=== PATIENT | female | born 1985 | race Caucasian/White ===

== ENCOUNTER 2024-03-05 06:25 | Day surgery (SDC) | payer BC ==
[2024-03-05 06:43] LABS: HCG URINE TEST NEGATIVE (NEGATIVE)
[2024-03-05] MEDS ORDERED: Lactated Ringers 1,000 ML IV ONE ×2 (06:44→06:57)
[2024-03-05] MEDS ORDERED: CEFAZOLIN 2 GM-D5W BAG** 2 GM/50 ML ML IV ONE (06:57)
[2024-03-05 07:07] VITALS: O2SAT 100
[2024-03-05] MEDS: CEFAZOLIN 2 GM-D5W BAG** 2 GM/50 ML ML IV SCH (07:12)
[2024-03-05] MEDS: Lactated Ringers 1,000 ML IV SCH (07:13)
[2024-03-05] MEDS ORDERED: Decadron 4 MG INJ ONE (08:19)
[2024-03-05] MEDS ORDERED: DIPRIVAN 200 MG/20 ML IV ONE (08:19)
[2024-03-05] MEDS ORDERED: Zofran 4 MG/2 ML VIAL ONE ×2 (08:19→09:31)
[2024-03-05] MEDS ORDERED: SUBLIMAZE 100 MCG/2 ML ONE ×2 (08:19→09:37)
[2024-03-05] MEDS ORDERED: Xylocaine-Mpf 2% 5 Ml Vial ONE (08:19)
[2024-03-05] MEDS ORDERED: Versed 2 MG/2 ML Injection ONE (08:19)
--- NOTE | 2024-03-05 09:24 | PCM.DCORD ---
- Discharge Disposition: Home, Self-Care Condition: Stable Prescriptions: New Oxycodone HCl/Acetaminophen [Percocet 5-325 mg Tablet] 1 tab PO Q6H PRN PRN #12 tablet MDD 4 PRN Reason: Pain Continue Ibuprofen 200 mg [Motrin 200 mg] 800 mg PO TID PRN ALPRAZolam [Alprazolam] 1 tab PO BID PRN PRN PRN Reason: Anxiety Follow up with: HARSHA HARGROVE PA [Primary Care Provider] -
[2024-03-05] MEDS ORDERED: Hydromorphone 1 mg/ml Injection ONE (10:07)
[2024-03-05 10:53] VITALS: RESP 18
[2024-03-05 11:11] VITALS: BP 133/92; PULSE 75; TEMP 97.6
--- NOTE | 2024-03-06 11:03 | OP ---
SURGERY DATE/TIME: 03/06/2024 0842 PREOPERATIVE DIAGNOSIS: Menorrhagia with bicornate uterus, failed medical management. POSTOPERATIVE DIAGNOSIS: Menorrhagia with bicornate uterus, failed medical management. PROCEDURE: Hysteroscopy D&C with NovaSure ablation. SURGEON: Andrey Bullock D.O. LATEXER: Tomeka Streeter and Ave Hickman, surgical techs. ANESTHESIA: General. QUANTITATIVE BLOOD LOSS: Minimal. COMPLICATIONS: None. INDICATIONS: The risks, benefits, indications and alternatives of the procedure were reviewed with the patient prior to procedure. The patient understood the risk of infection, bleeding, bowel injury, bladder injury, uterine perforation, pelvic infection, thromboembolic disorder associated with this surgery and desires to have this surgery as a possible means to alleviate her current medical condition. DESCRIPTION OF PROCEDURE AND FINDINGS: At this point, the patient is taken to the operating room, given general sedation, placed in a dorsal lithotomy position, prepped and draped in the usual sterile fashion. A weighted speculum is then placed into the patient's vagina and the anterior lip of the cervix is grasped with a single tooth tenaculum. Endocervical dilators were advanced through the endocervical canal as a means to dilate the cervix and the uterus was sounded to approximately 10 cm. From this point, a 5 mm hysteroscope is then placed in through the endocervical region towards the fundal region of the uterus where visualization appeared to be within normal limits with no gross abnormalities that were noted. From this point, the hysteroscope was removed and a curette was then placed into the fundus of the uterus and curettage was performed in all quadrants of the uterus retrieving a moderate amount of tissue. From this point, hemostasis was obtained. At this point, the NovaSure instrument was then taken through the endocervical region towards the fundal region with a measurement of 6.5 cm in length retracted approximately 1 cm with a width of 2.6 cm and the instrument was then engaged where it was turned on for an ablative time of 1 minute and 9 seconds. After complete ablation, the instrument was disengaged and removed from the uterine cavity without complication. From this point, all instruments were removed from the patient's vaginal region. The patient was then taken out of the dorsal lithotomy position, was taken out of anesthesia and was then taken to the recovery room in stable condition. All instruments and laps were accounted for x2.
== END 2024-03-05 11:17 | disposition home or self-care (01) ==
LOC: SDC 06:25
PROVIDERS: ATTEND Obstetrics & Gynecology
DX: N92.0 Excessive and frequent menstruation with regular cycle (principal); Q51.3 Bicornate uterus
CPT/HCPCS: 81025; 82947; J0690; J1100; J1170; J2250; J2405; J2704; J3010

== ENCOUNTER 2024-08-06 06:59 | Observation (INO) | payer BC ==
[2024-08-06 07:08] LABS: HCG URINE TEST NEGATIVE (NEGATIVE)
[2024-08-06] MEDS ORDERED: Pepcid 20 MG VIAL IV ONE (07:12)
[2024-08-06] MEDS: Lactated Ringers 1,000 ML IV SCH ×2 (07:14→17:08)
[2024-08-06] MEDS: CEFAZOLIN 2 GM/100 ML NaCl 2 GM/100 ML IVPB IV SCH ×2 (07:14→13:49)
[2024-08-06] MEDS: TYLENOL EXTRA STRENGTH 500 MG PO ONE (07:16)
[2024-08-06] MEDS: celeBREX 100 MG PO ONE (07:16)
[2024-08-06] MEDS: Reglan 10 MG/2 ML IV ONE (07:16)
[2024-08-06] MEDS: Transderm Scop 1.5MG Patch TOP PRN (07:16)
[2024-08-06] MEDS: Pepcid 20 MG VIAL IV ONE (07:16)
[2024-08-06] MEDS: Decadron 4 MG PO ONE (07:16)
[2024-08-06] MEDS: NEURONTIN PO ONE (07:17)
[2024-08-06 07:38] LABS: Hematocrit 40.4 % (34.1-44.9); Hemoglobin 13.1 g/dL (11.2-15.7); Mean Cell Volume 84.5 fL (79.4-94.8); Mean Corpuscular Hemoglobin 27.4 pg (25.6-32.2); Mean Corpuscular Hgb Concent. 32.4 g/dL (32.2-35.5); Mean Platelet Volume 10.3 fL (9.4-12.3); Platelet Count 217 x10^3/uL (182-369); Red Blood Count 4.78 x10^6/uL (3.93-5.22); Red Cell Distribution Width 16.5 % (11.7-14.4); White Blood Count 3.2 x10^3/uL (3.98-10.04)
[2024-08-06] MEDS: Pepcid 20 MG PO ONE (07:41)
[2024-08-06 07:51] LABS: ALBUMIN 4.1 g/dL (3.5-5.0); ANION GAP 12.6 MEQ/L (5-15); BILIRUBIN,TOTAL 0.4 mg/dL (0.2-1.3); Calcium 9.1 mg/dL (8.4-10.2); Creatinine 1 0.82 mg/dL (0.52-1.04); EST GLOMERULAR FILTRATION RATE 94.4 ML/MIN; Potassium 4.2 mmol/L (3.5-5.1); Total Protein 6.6 g/dL (6.3-8.2)
[2024-08-06 08:39] LABS: ABO TYPING B; Antibody Screen NEGATIVE (NEGATIVE); RH TYPING NEGATIVE
[2024-08-06] MEDS ORDERED: Decadron 4 MG INJ ONE (08:44)
[2024-08-06] MEDS ORDERED: DIPRIVAN 200 MG/20 ML IV ONE (08:44)
[2024-08-06] MEDS ORDERED: ROCURONIUM BROMIDE IV ONE ×2 (08:44→09:49)
[2024-08-06] MEDS ORDERED: Zofran 4 MG/2 ML VIAL ONE ×2 (08:44→11:14)
[2024-08-06] MEDS ORDERED: Sodium Chloride 0.9% 1000 ML 1,000 ML ONE (08:46)
[2024-08-06] MEDS ORDERED: SUBLIMAZE 100 MCG/2 ML ONE ×2 (09:08→10:44)
[2024-08-06] MEDS ORDERED: Sensorcaine 0.25% 10 ML ONE (09:19)
[2024-08-06] MEDS ORDERED: BRIDION 200MG/2ML IV ONE (10:00)
[2024-08-06] MEDS ORDERED: TORAdol 30 mg Injection ONE (10:10)
[2024-08-06 10:46] LABS: Appearance Clear (Clear); Bacteria None Seen /HPF (None Seen); Bilirubin Negative (Negative); Blood Negative (Negative); Epithelial Cells None Seen /HPF (None Seen); Glucose, Urine Negative (Negative); Hyaline Casts NONE SEEN /LPF (0-2); Ketones Negative (Negative); Leukocyte Esterase Negative (Negative); Nitrite Negative (Negative); Ph 7.5 (4.6-8.0); Protein,Urine Dip Negative (Negative); RBC 0-2 /HPF (0-5); Specific Gravity <=1.005 (1.005-1.030); Urobilinogen 0.2 mg/dL (0.2); WBC 0-2 /HPF (0-5)
[2024-08-06] MEDS ORDERED: Hydromorphone 1 mg/ml Injection ONE (11:15)
[2024-08-06] MEDS ORDERED: MORPHINE SULFATE 2 MG INJ IV PRN (12:13)
[2024-08-06] MEDS ORDERED: Zofran 4 MG/2 ML VIAL IV PRN (12:22)
[2024-08-06] MEDS ORDERED: xanAX 0.5 MG PO PRN (12:33)
[2024-08-06] MEDS ORDERED: NON-FORMULARY ITEM (Ubrogepant [Ubrelvy] 100 MG Tablet) PO PRN (12:33)
[2024-08-06] MEDS ORDERED: MOTRIN 400 MG PO PRN (12:35)
[2024-08-06] MEDS ORDERED: MEDICATION INTERVENTION MC SCH (12:45)
[2024-08-06] MEDS: MORPHINE SULFATE 4 MG INJ IV PRN ×2 (13:24→17:26)
[2024-08-06] MEDS: Reglan 10 MG/2 ML IV SCH (13:48)
[2024-08-06] MEDS: Mylicon 80MG PO SCH (13:49)
[2024-08-06] MEDS: Docusate Sodium 100 MG PO SCH (13:49)
[2024-08-06] MEDS: TORAdol 30 mg Injection IV PRN (15:09)
[2024-08-06 18:08] LABS: Hematocrit 39.3 % (34.1-44.9); Hemoglobin 12.9 g/dL (11.2-15.7); Mean Cell Volume 83.4 fL (79.4-94.8); Mean Corpuscular Hemoglobin 27.4 pg (25.6-32.2); Mean Corpuscular Hgb Concent. 32.8 g/dL (32.2-35.5); Mean Platelet Volume 10.5 fL (9.4-12.3); Platelet Count 235 x10^3/uL (182-369); Red Blood Count 4.71 x10^6/uL (3.93-5.22); Red Cell Distribution Width 15.9 % (11.7-14.4); White Blood Count 8.8 x10^3/uL (3.98-10.04)
[2024-08-07 04:44] LABS: Hematocrit 34.7 % (34.1-44.9); Hemoglobin 11.2 g/dL (11.2-15.7); Mean Cell Volume 84.2 fL (79.4-94.8); Mean Corpuscular Hemoglobin 27.2 pg (25.6-32.2); Mean Corpuscular Hgb Concent. 32.3 g/dL (32.2-35.5); Mean Platelet Volume 10.4 fL (9.4-12.3); Platelet Count 219 x10^3/uL (182-369); Red Blood Count 4.12 x10^6/uL (3.93-5.22); Red Cell Distribution Width 16.7 % (11.7-14.4); White Blood Count 9.6 x10^3/uL (3.98-10.04)
[2024-08-07 05:08] LABS: ALBUMIN 3.2 g/dL (3.5-5.0); ANION GAP 10.7 MEQ/L (5-15); BILIRUBIN,TOTAL 0.2 mg/dL (0.2-1.3); Calcium 8.6 mg/dL (8.4-10.2); Creatinine 1 0.73 mg/dL (0.52-1.04); EST GLOMERULAR FILTRATION RATE 108.6 ML/MIN; Potassium 4.3 mmol/L (3.5-5.1); Total Protein 5.5 g/dL (6.3-8.2)
[2024-08-07 07:31] VITALS: RESP 16
--- NOTE | 2024-08-07 07:53 | PCM.NOTE ---
Date and Time: 08/07/24 0749 Subjective Assessment: pod 1 sp lash pt resting in bed and doing well able to ambulate and tolerate diet. vss afebrile abd; soft incision c/d/intact ext; no clubbing cyanosis or edema hgb; 11 a/p sp lash b/l salpingectomy dc home today should fu in office in 2 wks Objective Exam Wound Assessment: Skin/Wound Assessment Wound/Incision Assessment Start: 08/06/24 11:57 Text: Status: Active Freq: Q4H Protocol: Document 08/07/24 07:40 [facility] (Rec: 08/07/24 07:40 [facility] [id number]) Wound/Incision Assessment Abdomen Wound Assessment Shift Assessment Wound Type Incision Wound Stage Non Pressure Wound Drainage Amount None General Appearance Well Approximated,Open to air Comment 4 incisions POD #1 lap hysterectomy - dermabond - open to air Wound Photo Photo Taken No Objective Data Vital Signs: Vital Signs - 24 hr Temp Pulse Resp BP Pulse Ox 08/07/24 07:35 16 08/07/24 07:31 97.0 F 69 16 113/66 99 08/07/24 05:52 103/54 08/07/24 04:00 98.4 F 72 17 94/55 98 08/07/24 00:00 98.6 F 91 H 16 101/53 96 08/06/24 19:45 16 08/06/24 19:28 98.7 F 80 17 108/58 97 08/06/24 16:00 97.8 F 82 16 106/62 98 08/06/24 15:39 18 08/06/24 15:15 98.4 F 71 18 112/61 98 08/06/24 14:15 98.0 F 96 H 111/55 98 08/06/24 13:15 98.4 F 93 H 16 116/71 100 08/06/24 12:45 98.4 F 85 16 125/71 98 08/06/24 12:15 97.1 F 67 16 122/72 99 08/06/24 12:00 97.2 F 72 18 124/69 100 08/06/24 11:59 97.1 F 71 16 131/70 100 Pain Assessment - Last Documented Pain Intensity 0 Pain Scale Used 0-10 Pain Scale Intake and Output: Intake & Output 11/10/08/05/24 08/06/24 08/07/24 11:59 11:59 11:59 11:59 Intake Total 20 2665 Output Total 1650 Balance 20 1015 Weight 90 kg Lab Results: Lab Results-Last 24 Hours 08/06/24 08/06/24 08/06/24 Range/Units 07:30 07:30 09:03 WBC (3.98-10.04) x10^3/uL RBC (3.93-5.22) x10^6/uL Hgb (11.2-15.7) g/dL Hct (34.1-44.9) % MCV (79.4-94.8) fL MCH (25.6-32.2) pg MCHC (32.2-35.5) g/dL RDW (11.7-14.4) % Plt Count (182-369) x10^3/uL MPV (9.4-12.3) fL Sodium 140 (135-145) mmol/L Potassium 4.2 (3.5-5.1) mmol/L Chloride 106 (98-107) mmol/L Carbon Dioxide 25 (22-30) mmol/L Anion Gap 12.6 (5-15) MEQ/L BUN 10 (7-17) mg/dL Creatinine 0.82 (0.52-1.04) mg/dL Estimated GFR 94.4 ML/MIN Glucose 97 (74-106) mg/dL Calcium 9.1 (8.4-10.2) mg/dL Total Bilirubin 0.40 (0.2-1.3) mg/dL AST 24 (14-36) U/L ALT 19 (0-35) U/L Alkaline Phosphatase 49 (38-126) U/L Serum Total Protein 6.6 (6.3-8.2) g/dL Albumin 4.1 (3.5-5.0) g/dL Urine Color Yellow (Yellow) Urine Appearance Clear (Clear) Urine pH 7.5 (4.6-8.0) Ur Specific [place] <=1.005 (1.005-1.030) Urine Protein Negative (Negative) Urine Glucose (UA) Negative (Negative) mg/dL Urine Ketones Negative (Negative) Urine Blood Negative (Negative) Urine Nitrite Negative (Negative) Urine Bilirubin Negative (Negative) Urine Urobilinogen 0.2 (0.2) mg/dL Ur Leukocyte Esterase Negative (Negative) U Hyaline Cast (Auto) NONE SEEN (0-2) /LPF Urine Microscopic RBC 0-2 (0-5) /HPF Urine Microscopic WBC 0-2 (0-5) /HPF Ur Epithelial Cells None Seen (None Seen) /HPF Urine Bacteria None Seen (None Seen) /HPF ABO Group B Rh Factor NEGATIVE Antibody Screen NEGATIVE (NEGATIVE) 08/06/24 08/07/24 08/07/24 Range/Units 18:04 04:40 04:40 WBC 8.8 9.6 (3.98-10.04) x10^3/uL RBC 4.71 4.12 (3.93-5.22) x10^6/uL Hgb 12.9 11.2 (11.2-15.7) g/dL Hct 39.3 34.7 (34.1-44.9) % MCV 83.4 84.2 (79.4-94.8) fL MCH 27.4 27.2 (25.6-32.2) pg MCHC 32.8 32.3 (32.2-35.5) g/dL RDW 15.9 H 16.7 H (11.7-14.4) % Plt Count 235 219 (182-369) x10^3/uL MPV 10.5 10.4 (9.4-12.3) fL Sodium 134 L (135-145) mmol/L Potassium 4.3 (3.5-5.1) mmol/L Chloride 105 (98-107) mmol/L Carbon Dioxide 23 (22-30) mmol/L Anion Gap 10.7 (5-15) MEQ/L BUN 11 (7-17) mg/dL Creatinine 0.73 (0.52-1.04) mg/dL Estimated GFR 108.6 ML/MIN Glucose 109 H (74-106) mg/dL Calcium 8.6 (8.4-10.2) mg/dL Total Bilirubin 0.20 (0.2-1.3) mg/dL AST 23 (14-36) U/L ALT 22 (0-35) U/L Alkaline Phosphatase 44 (38-126) U/L Serum Total Protein 5.5 L (6.3-8.2) g/dL Albumin 3.2 L (3.5-5.0) g/dL Urine Color (Yellow) Urine Appearance (Clear) Urine pH (4.6-8.0) Ur Specific [place] (1.005-1.030) Urine Protein (Negative) Urine Glucose (UA) (Negative) mg/dL Urine Ketones (Negative) Urine Blood (Negative) Urine Nitrite (Negative) Urine Bilirubin (Negative) Urine Urobilinogen (0.2) mg/dL Ur Leukocyte Esterase (Negative) U Hyaline Cast (Auto) (0-2) /LPF Urine Microscopic RBC (0-5) /HPF Urine Microscopic WBC (0-5) /HPF Ur Epithelial Cells (None Seen) /HPF Urine Bacteria (None Seen) /HPF ABO Group Rh Factor Antibody Screen (NEGATIVE) Assessment/Plan (1) Status post laparoscopic supracervical hysterectomy Current Visit: Yes Status: Acute Code(s): Z90.711 - ACQUIRED ABSENCE OF UTERUS WITH REMAINING CERVICAL STUMP (2) Status post bilateral salpingectomy Current Visit: Yes Status: Acute Code(s): Z90.79 - ACQUIRED ABSENCE OF OTHER GENITAL ORGAN(S) (3) Enlarged uterus Current Visit: Yes Status: Acute Code(s): N85.2 - HYPERTROPHY OF UTERUS
--- NOTE | 2024-08-07 07:57 | PCM.DS ---
Discharge Summary Date of Admission: 08/06/24 06:59 Admitting Physician: DAVID JAY DO Primary Care Provider: HARSHA HARGROVE Allergies Allergies No Known Drug Allergies Allergy (Verified 07/04/24 09:01) Hospital Summary - Hospital Course Hospital Course: pt admitted on aug 06 for undergoing laparoscopic supracervical hysterectomy b/l salpingectomy for menorrhagia for failed ablation, failed medical management and underwent procedure without complication. during postop period did well was able to ambulate and tolerate diet where hgb was stable at 11 pod 1 and incision was clean dry and intact. at this time pt stable for discharge and was advised to fu in office in 2 wks for postop evaluation. all questions answered to her satisfaction and was advised to call me for any issues that may arise. rx for percocet being sent to pharmacy 20 tabs. - Vitals & Intake/Output Vital Signs: Vital Signs Temperature 97.0 F 08/07/24 07:31 Pulse Rate 69 08/07/24 07:31 Respiratory Rate 16 08/07/24 07:35 Blood Pressure 113/66 08/07/24 07:31 O2 Sat by Pulse Oximetry 99 08/07/24 07:31 Intake & Output: Intake & Output 08/04/24 08/05/24 08/06/24 08/07/24 11:59 11:59 11:59 11:59 Intake Total 20 2665 Output Total 1650 Balance 20 1015 Weight 90 kg - Lab Result Diagrams: 08/07/24 04:40 08/07/24 04:40 Lab Results-Last 24 Hrs: Lab Results-Last 24 Hours 08/06/24 08/06/24 08/06/24 Range/Units 07:30 07:30 09:03 WBC (3.98-10.04) x10^3/uL RBC (3.93-5.22) x10^6/uL Hgb (11.2-15.7) g/dL Hct (34.1-44.9) % MCV (79.4-94.8) fL MCH (25.6-32.2) pg MCHC (32.2-35.5) g/dL RDW (11.7-14.4) % Plt Count (182-369) x10^3/uL MPV (9.4-12.3) fL Sodium 140 (135-145) mmol/L Potassium 4.2 (3.5-5.1) mmol/L Chloride 106 (98-107) mmol/L Carbon Dioxide 25 (22-30) mmol/L Anion Gap 12.6 (5-15) MEQ/L BUN 10 (7-17) mg/dL Creatinine 0.82 (0.52-1.04) mg/dL Estimated GFR 94.4 ML/MIN Glucose 97 (74-106) mg/dL Calcium 9.1 (8.4-10.2) mg/dL Total Bilirubin 0.40 (0.2-1.3) mg/dL AST 24 (14-36) U/L ALT 19 (0-35) U/L Alkaline Phosphatase 49 (38-126) U/L Serum Total Protein 6.6 (6.3-8.2) g/dL Albumin 4.1 (3.5-5.0) g/dL Urine Color Yellow (Yellow) Urine Appearance Clear (Clear) Urine pH 7.5 (4.6-8.0) Ur Specific [place] <=1.005 (1.005-1.030) Urine Protein Negative (Negative) Urine Glucose (UA) Negative (Negative) mg/dL Urine Ketones Negative (Negative) Urine Blood Negative (Negative) Urine Nitrite Negative (Negative) Urine Bilirubin Negative (Negative) Urine Urobilinogen 0.2 (0.2) mg/dL Ur Leukocyte Esterase Negative (Negative) U Hyaline Cast (Auto) NONE SEEN (0-2) /LPF Urine Microscopic RBC 0-2 (0-5) /HPF Urine Microscopic WBC 0-2 (0-5) /HPF Ur Epithelial Cells None Seen (None Seen) /HPF Urine Bacteria None Seen (None Seen) /HPF ABO Group B Rh Factor NEGATIVE Antibody Screen NEGATIVE (NEGATIVE) 08/06/24 08/07/24 08/07/24 Range/Units 18:04 04:40 04:40 WBC 8.8 9.6 (3.98-10.04) x10^3/uL RBC 4.71 4.12 (3.93-5.22) x10^6/uL Hgb 12.9 11.2 (11.2-15.7) g/dL Hct 39.3 34.7 (34.1-44.9) % MCV 83.4 84.2 (79.4-94.8) fL MCH 27.4 27.2 (25.6-32.2) pg MCHC 32.8 32.3 (32.2-35.5) g/dL RDW 15.9 H 16.7 H (11.7-14.4) % Plt Count 235 219 (182-369) x10^3/uL MPV 10.5 10.4 (9.4-12.3) fL Sodium 134 L (135-145) mmol/L Potassium 4.3 (3.5-5.1) mmol/L Chloride 105 (98-107) mmol/L Carbon Dioxide 23 (22-30) mmol/L Anion Gap 10.7 (5-15) MEQ/L BUN 11 (7-17) mg/dL Creatinine 0.73 (0.52-1.04) mg/dL Estimated GFR 108.6 ML/MIN Glucose 109 H (74-106) mg/dL Calcium 8.6 (8.4-10.2) mg/dL Total Bilirubin 0.20 (0.2-1.3) mg/dL AST 23 (14-36) U/L ALT 22 (0-35) U/L Alkaline Phosphatase 44 (38-126) U/L Serum Total Protein 5.5 L (6.3-8.2) g/dL Albumin 3.2 L (3.5-5.0) g/dL Urine Color (Yellow) Urine Appearance (Clear) Urine pH (4.6-8.0) Ur Specific [place] (1.005-1.030) Urine Protein (Negative) Urine Glucose (UA) (Negative) mg/dL Urine Ketones (Negative) Urine Blood (Negative) Urine Nitrite (Negative) Urine Bilirubin (Negative) Urine Urobilinogen (0.2) mg/dL Ur Leukocyte Esterase (Negative) U Hyaline Cast (Auto) (0-2) /LPF Urine Microscopic RBC (0-5) /HPF Urine Microscopic WBC (0-5) /HPF Ur Epithelial Cells (None Seen) /HPF Urine Bacteria (None Seen) /HPF ABO Group Rh Factor Antibody Screen (NEGATIVE) - Procedures and Test Procedures and Tests throughout Hospitalization: Therapy Orders & Screens 08/06/24 16:39 Incentive Spirometry UD Comment: Diagnosis: Hysterectomy Discharge Exam Wound Assessment: Skin/Wound Assessment Wound/Incision Assessment Start: 08/06/24 11:57 Text: Status: Active Freq: Q4H Protocol: Document 08/07/24 07:40 [facility] (Rec: 08/07/24 07:40 [facility] [id number]) Wound/Incision Assessment Abdomen Wound Assessment Shift Assessment Wound Type Incision Wound Stage Non Pressure Wound Drainage Amount None General Appearance Well Approximated,Open to air Comment 4 incisions POD #1 lap hysterectomy - dermabond - open to air Wound Photo Photo Taken No Final Diagnosis/Problem List - Final Discharge Diagnosis/Problem (1) Status post laparoscopic supracervical hysterectomy Current Visit: Yes Status: Acute Code(s): Z90.711 - ACQUIRED ABSENCE OF UTERUS WITH REMAINING CERVICAL STUMP (2) Status post bilateral salpingectomy Current Visit: Yes Status: Acute Code(s): Z90.79 - ACQUIRED ABSENCE OF OTHER GENITAL ORGAN(S) (3) Enlarged uterus Current Visit: Yes Status: Acute Code(s): N85.2 - HYPERTROPHY OF UTERUS - Discharge Disposition: Home, Self-Care Condition: Stable Prescriptions: No Action Ibuprofen 200 mg [Motrin 200 mg] 800 mg PO TID PRN ALPRAZolam [Alprazolam] 1 tab PO BID PRN PRN PRN Reason: Anxiety Ubrogepant [Ubrelvy] 100 mg PO DAILY PRN PRN PRN Reason: migrain Follow up with: HARSHA HARGROVE PA [Primary Care Provider] - DAVID JAY DO [ACTIVE STAFF] - 2 weeks (no heavy lifting no intercourse for 6 wks keep incision clean and dry no driving for a week should call me for any issues that may arise after discharge should fu in office in 2 wks)
[2024-08-07] MEDS: ENOXAPARIN SODIUM SQ SCH (08:33)
[2024-08-07 11:40] VITALS: BP 116/63; PULSE 79; TEMP 98.1; O2SAT 97
--- NOTE | 2024-08-08 11:26 | OP ---
SURGERY DATE/TIME: 08/06/2024 PREOPERATIVE DIAGNOSIS: Menorrhagia with failed ablation, with failed medical management. POSTOPERATIVE DIAGNOSIS: Menorrhagia with failed ablation, with failed medical management. PROCEDURE: Laparoscopic-assisted supracervical hysterectomy, bilateral salpingectomy. SURGEON: Jamari Bullock DO AUTOMOTIVE MANUFACTURER: Ave Hickman. ANESTHESIA: General. ESTIMATED BLOOD LOSS: 100 mL. COMPLICATIONS: None. DESCRIPTION OF PROCEDURE AND FINDINGS: The risks, benefits, indications, and alternatives of the procedure were reviewed with the patient prior to the procedure. The patient understood the risks of infection, bleeding, bowel injury, bladder injury, ureteral injury, pelvic infection, thromboembolic disorder, and possible surgical menopause, decreased libido that could be associated with the surgery, however, desired to have this surgery as a possible means to alleviate her current medical condition. At this point, the patient was taken to the operating room and given general sedation, placed in a supine position where she was prepped and draped in the usual sterile fashion. A 5 mm skin incision was made in umbilical fold and a 5 mm trocar and sleeve were advanced under direct visualization where pneumoperitoneum was obtained with 4 L of CO2 gas. An additional incision was made in the left middle quadrant region where a 5 mm trocar and sleeve were advanced under direct visualization. An additional incision was made in the right middle quadrant region where a 5 mm incision was made and a 5 mm trocar and sleeve were advanced under direct visualization. From this point, a survey of the patient's pelvis and abdomen revealed entirely normal anatomy, however, the uterus appeared to be slightly enlarged, approximately 12-week size uterus, with no gross abnormalities located in either adnexa. From this point, the uterus was then elevated with the surgical assist lifting the uterus, tilting it toward her side, and a LigaSure was used to clamp, coagulate, and cut the left utero-ovarian ligament where it was clamped, coagulated, and cut, taken down through the round ligament towards the uterine vasculature on its side, where at this point the uterine vasculature was then coagulated in 2 contiguous regions and cut and a bladder flap developed on its side. The same procedure was performed on the right side where the uterus was elevated and lifted towards the other contralateral side where the right utero-ovarian ligament was clamped, coagulated, and cut, taken down through the round ligament toward the uterine vasculature where it, too, was skeletonized 2 contiguous regions was clamped, coagulated, and cut and a bladder flap developed on its side. After complete hemostasis was obtained, the uterus was then elevated and a SupraLoop was used to amputate the uterus from the cervical region and was done so with a cutting of 100 duffy. The machine was turned on and amputation of the uterus was made, removing and excising the uterus from the cervical stump and hemostasis was obtained. From this point, the bilateral fallopian tubes were elevated and LigaSure was then placed along the border of the mesosalpinx where it was clamped, coagulated, and cut, taken down through the entire portion of the fallopian tube on both sides and hemostasis was obtained and did have a history of tubal sterilization in the past. From this point, the bilateral fallopian tubes were removed in their entirety with complication. From this point, an incision was made 2 cm above the symphysis pubis where a 3 cm incision was made along the symphysis pubis where it was taken down to the rectus sheath and the fascia was incised bilaterally and entered through the peritoneum without complication. An Jose Armando retractor was placed in through the incision where at this point the uterus was then visualized and the uterus was removed with manual morcellation and removed in its entirety without complication and no leftover spillage within the pelvic and abdominal cavity. From this point, after removal of the uterus, the incision of the rectus sheath and fascia was closed with 0 Vicryl suture and the subsequent subcutaneous layer was closed with 3-0 Vicryl suture and the skin was closed with absorbable bernard called Insorb. A repeat survey of the patient's pelvis and abdomen revealed no bleeding that was noted in the pelvic region, bilateral ovaries appeared to be within normal limits with no gross abnormalities noted on the ovaries and no gross abnormalities located throughout the abdomen and pelvis. From this point, all instruments removed from the patient's abdomen and incisions were closed with 4-0 Monocryl suture. The patient was then taken out of anesthesia and was then taken to the recovery room in stable condition. All instruments and laps were accounted for x2.
== END 2024-08-07 11:10 | disposition home or self-care (01) ==
LOC: MED SURG 06:59 → EDSTATUS 14:44
PROVIDERS: ADMIT Obstetrics & Gynecology; ATTEND Obstetrics & Gynecology
DX: N85.2 Hypertrophy of uterus (principal); N92.0 Excessive and frequent menstruation with regular cycle; D64.9 Anemia, unspecified
CPT/HCPCS: 36415; 58542; 80053; 81001; 81025; 85027; 86850; 86900; 86901; 87086; G0378; J0690; J1100; J1171; J1650; J1885; J2270; J2405; J2704; J3010; L0625; A9270-GY

== ENCOUNTER 2024-09-09 10:48 | Day surgery (SDC) | payer BC ==
--- NOTE | 2024-09-08 22:45 | HP ---
HISTORY OF PRESENT ILLNESS: Patient has had painful enlarging subcutaneous nodules bilateral thighs, desires excision. Question whether lipomas. PAST MEDICAL HISTORY: Headaches, has had other lipomas excised in the past, anxiety in the past, anemia in the past. HOME MEDICATIONS: Ubrelvy and Xanax. ALLERGIES: No known drug allergies. PAST SURGICAL HISTORY: D and C in the past. SOCIAL HISTORY: No smoking or alcohol abuse. REVIEW OF SYSTEMS: Twelve systems reviewed. No chest pain or palpitations. Other systems negative or noncontributory as above and per preadmission questionnaire. PHYSICAL EXAMINATION: GENERAL: Height 5 feet 7 inches. BMI 28.97. No acute distress. HEENT: Sclerae nonicteric. Extraocular movements intact. NECK: No JVD. CHEST: Clear. Equal excursion, nonlabored breathing. CARDIOVASCULAR: Regular rate and rhythm. ABDOMEN: Soft. SKIN: Dry. EXTREMITIES: No cyanosis or edema. Bilateral thigh subcutaneous nodules, at least 5 or 6 on the left and at least 1 on the right. NEUROLOGIC: Alert and oriented. Moving extremities symmetrically. PSYCHIATRIC: Appropriate mood and affect. IMPRESSION: Enlarging bilateral thighs subcutaneous masses or lipomas. Patient needs excision as they are painful and causing symptoms. Risks of bleeding; infection; possibility to packing, risk of hematoma or seroma formation; aches and pains; risk of burning or numbness; risk of anesthesia, DVT, PE, pneumonia; possible no improvement in her aches and pain as she had preop. She understands if excised likely does not recur but she could get other lipomas or subcutaneous masses adjacent to or elsewhere on her body. She understands and will proceed with outpatient excision of subcutaneous nodules on thigh as an outpatient under general anesthetic. Otherwise, continued medications for anxiety and headaches.
[~2024-09-09 10:48] MED LIST: Sensorcaine 0.25% 10 ML ONE
[2024-09-09] MEDS ORDERED: CEFAZOLIN 2 GM/100 ML NaCl 2 GM/100 ML IVPB IV ONE (11:21)
[2024-09-09 11:40] LABS: Absolute Neutrophil Ct (ANC) 1.85 x10^3/uL (1.56-6.13); BASOPHIL % 1.5 % (0.1-1.2); Basophil (Absolute #) 0.05 x10^3/uL (0.01-0.08); Eosinophil % 1.9 % (0.7-5.8); Eosinophil (Absolute #) 0.06 x10^3/uL (0.04-0.36); Hematocrit 41.7 % (34.1-44.9); Hemoglobin 13.9 g/dL (11.2-15.7); IMMATURE GRAN # 0.01 x10^3u/L (0.001-0.031); IMMATURE GRAN % 0.3 % (0.001-0.429); Lymphocyte (Absolute #) 0.91 x10^3/uL (1.18-3.74); Lymphocytes % 28.2 % (19.3-51.7); Mean Cell Volume 84.6 fL (79.4-94.8); Mean Corpuscular Hemoglobin 28.2 pg (25.6-32.2); Mean Corpuscular Hgb Concent. 33.3 g/dL (32.2-35.5); Mean Platelet Volume 10.4 fL (9.4-12.3); Monocyte (Absolute #) 0.35 x10^3/uL (0.24-0.86); Monocytes % 10.8 % (4.7-12.5); Neutrophil % 57.3 % (34.0-71.1); Platelet Count 189 x10^3/uL (182-369); Red Blood Count 4.93 x10^6/uL (3.93-5.22); Red Cell Distribution Width 14.8 % (11.7-14.4); White Blood Count 3.2 x10^3/uL (3.98-10.04)
[2024-09-09] MEDS: Lactated Ringers 1,000 ML IV SCH (11:56)
[2024-09-09] MEDS: CEFAZOLIN 2 GM/100 ML NaCl 2 GM/100 ML IVPB IV SCH (11:56)
[2024-09-09] MEDS ORDERED: SUBLIMAZE 100 MCG/2 ML ONE ×2 (12:59→15:07)
[2024-09-09] MEDS ORDERED: Versed 2 MG/2 ML Injection ONE (12:59)
[2024-09-09] MEDS ORDERED: ROCURONIUM BROMIDE IV ONE (12:59)
[2024-09-09] MEDS ORDERED: DIPRIVAN 200 MG/20 ML IV ONE (12:59)
[2024-09-09] MEDS ORDERED: Sensorcaine 0.25% 10 ML ONE (13:16)
[2024-09-09] MEDS ORDERED: Xylocaine-Mpf 2% 5 Ml Vial ONE (13:16)
[2024-09-09] MEDS ORDERED: Zofran 4 MG/2 ML VIAL ONE (14:19)
[2024-09-09] MEDS ORDERED: TORAdol 30 mg Injection ONE (14:19)
[2024-09-09] MEDS ORDERED: BRIDION 200MG/2ML IV ONE (14:19)
[2024-09-09 15:52] VITALS: RESP 18
[2024-09-09 16:11] VITALS: BP 128/74; PULSE 73; TEMP 97.3; O2SAT 100
--- NOTE | 2024-09-11 12:17 | OP ---
SURGERY DATE/TIME: 09/09/2024 9296 - 1430 PREOPERATIVE DIAGNOSIS: Enlarging painful subcutaneous nodules right and left thighs. POSTOPERATIVE DIAGNOSES: 1) Enlarging painful subcutaneous nodules right and left thighs. 2) Lipomatous densities, path pending. PROCEDURES: 1) Excisional biopsy of right thigh of lipomatous density with intermediate closure (approximately 3 cm). 2) Excisional biopsy of posterior left thigh of lipomatous density (approximately 4 cm) with intermediate closure. 3) Excisional biopsy of the medial distal left thigh (approximately 2.5 cm) lipomatous density with intermediate closure. 4) Excisional biopsy of lipomatous density distal lateral left thigh (approximately 2 cm) with intermediate closure. 5) Excisional biopsy of proximal lateral left thigh (approximately 3 cm) with intermediate closure. SURGEON: Arash Real MD. ANESTHESIA: General. DESCRIPTION OF PROCEDURE AND FINDINGS: The sites were confirmed and marked in the patient preop holding area. She was prepped and draped in the usual sterile fashion. After official time-out, no disagreement in planned procedure. Under general anesthetic, started first on the right side. Dissection was carried down over the top of it and circumferentially around the lipomatous density measuring about 3 cm in size. The subcutaneous closed with 0 Vicryl, skin with 4-0 Vicryl, interrupted 3-0 Prolene was used to reinforce the area as the skin was quite thin and frail tissue in this patient. This was repeated in the left posterior thigh. This area was about 4 cm in size. It was carefully dissected including subcutaneous tissue around the area and passed off. It was about 4 cm in size. Good hemostasis was noted. Wound was closed with 3-0 Vicryl, deep sutures subcutaneous. Skin was closed with 4-0 Vicryl, interrupted 3-0 Prolene used to reinforce the area. This was repeated on the medial distal left thigh. Dissection was carried down circumferentially around approximately 2.5 cm lipomatous density and passed off to Pathology. Subcutaneous closed with 3-0 Vicryl, skin closed with 4-0 Vicryl, interrupted 3-0 Prolene used to reinforce the area as her skin was quite thin and frail. This was repeated in the lateral left distal thigh and the area was approximately 2 cm. Lipomatous density was passed off to Pathology. Wound closed with 3-0 Vicryl, deep and superficial subcutaneous. Skin was closed with 4-0 Vicryl, interrupted 3-0 Prolene used to reinforce the area. This was then finally repeated in the proximal left thigh, final area marked. Dissection was carried down circumferentially around this lipomatous density. The lipoma was carefully dissected subcutaneous around the area. Wound was closed with 3-0 Vicryl, 4-0 Vicryl, interrupted 3-0 Prolene used to reinforce the area. Steri-Strips applied. Marcaine 0.25% local injected around the area. The patient tolerated the procedure well. Findings were discussed with the family including the fact that her skin was quite fragile and thin. We put the Prolene in. She wanted the sutures taken out toward the end of next week. One of my partners might be able to or one of the nurses. Otherwise, I will see her back in the office in 2 weeks as I will be out of town next weekend.
== END 2024-09-09 16:19 | disposition home or self-care (01) ==
LOC: SDC 10:48
PROVIDERS: ATTEND Surgery
DX: D17.23 Benign lipomatous neoplasm of skin and subcutaneous tissue of right leg (principal); D17.24 Benign lipomatous neoplasm of skin and subcutaneous tissue of left leg; R22.43 Localized swelling, mass and lump, lower limb, bilateral
CPT/HCPCS: 36415; 85025; J0690; J1885; J2250; J2405; J2704; J3010